=== PATIENT | male | born 1970 | race Caucasian/White ===

== ENCOUNTER 2022-03-18 08:26 | Outpatient (CLI) | payer OTHER, SELFPAY ==
[2022-03-18 14:09] LABS: Chloride* 104 mmol/L (96-114)
[2022-03-18 14:10] LABS: Potassium* 4.5 mmol/L (3.6-5.1); Sodium* 143 mmol/L (135-149)
[2022-03-18 14:12] LABS: Carbon Dioxide* 32 mmol/L (20-32); Cholesterol* 149 mg/dL (90-199); Creatinine* 1.4 mg/dL (0.5-1.5); Estimated Glomerular Filt Rate 61 ml/min
[2022-03-18 14:13] LABS: Blood Urea Nitrogen* 30 mg/dL (7-30); Calcium* 9.6 mg/dL (8.4-10.6); Glucose* 93 mg/dL (60-115); HDL Cholesterol* 34 mg/dL (>=40); LDL Cholesterol Calculated 96 mg/dL (<100); Triglycerides* 93 mg/dL (40-149)
[2022-03-18 14:44] LABS: PSA Screen* 0.86 ng/mL (0.10-4.00)
== END 2022-03-18 08:27 | disposition home or self-care (01) ==
LOC: LKVREF 08:28
PROVIDERS: PCP Family Medicine; Visit Provider Family Medicine
DX: Z00.00 Encounter for general adult medical examination without abnormal findings (principal); Z13.6 Encounter for screening for cardiovascular disorders; Z12.5 Encounter for screening for malignant neoplasm of prostate
CPT/HCPCS: 80048; 80061; 84153